=== PATIENT | male | born 1975 | race Two or more races ===

== ENCOUNTER 2020-12-23 14:15 | Emergency (ER) | payer MEDICAID ==
[~2020-12-23] VITALS: Ht 180.3 cm; Wt 150.0 kg
[2020-12-23 14:23] VITALS: BP 146/84
[2020-12-23] MEDS ORDERED: EMPA10TA MT (15:57)
== END 2020-12-23 16:05 | disposition home or self-care (01) ==
LOC: ER 14:15
DX: E11.9 Type 2 diabetes mellitus without complications (principal)
CPT/HCPCS: 82962; 99283

== ENCOUNTER 2021-01-11 12:31 | Emergency (ER) | payer MEDICAID ==
[~2021-01-11] VITALS: Ht 180.3 cm; Wt 178.0 kg
[~2021-01-11 12:31] MED LIST: EMPA10TA MT
[2021-01-11 12:52] VITALS: BP 153/82
[2021-01-11] MEDS ORDERED: EMPA25TA MT (13:54)
== END 2021-01-11 14:10 | disposition home or self-care (01) ==
LOC: ER 12:31
DX: Z76.0 Encounter for issue of repeat prescription (principal); E11.9 Type 2 diabetes mellitus without complications
CPT/HCPCS: 82962; 99282